=== PATIENT | female | born 1955 | race Caucasian/White ===

== ENCOUNTER 2018-11-12 12:11 | Emergency (ER) | payer BC ==
[2018-11-12] MEDS ORDERED: Ondansetron 4 MG/2 ML SDV ONE ×2 (12:14→12:15)
[2018-11-12] MEDS ORDERED: Nitroglycerin 0.4 MG Tab.SL ONE ×2 (12:15→12:21)
[2018-11-12] MEDS ORDERED: Aspirin 81 MG Tab.Chew ONE (12:16)
[2018-11-12 12:40] LABS: CHLORIDE,CL 103 mmol/L (98-107); SODIUM,NA 139 mmol/L (136-145)
--- NOTE | 2018-11-12 12:40 | EDM.PDOC ---
ED HPI GENERAL MEDICAL PROBLEM - General Chief Complaint: General Stated Complaint: chest pain Time Seen by Provider: 11/12/18 12:15 Source of Information: Reports: Patient, Family - History of Present Illness Onset: Sudden Duration: Minutes:, Improving Location: Reports: Chest Quality: Reports: Pressure (Like a ton of bricks on her chest) Severity: Severe (About 8 out of 10 initially) Improves with: Reports: Cold Therapy Worsens with: Reports: Movement Associated Symptoms: Reports: Chest Pain, Diaphoresis, Nausea/Vomiting - Related Data Allergies Allergy/AdvReac Type Severity Reaction Status Date / Time Penicillins Allergy Rash Verified 10/29/13 11:06 Home Meds: Home Meds Albuterol [Ventolin HFA] 1 puff INH ASDIRECTED 10/29/13 [History] Albuterol/Ipratropium [DuoNeb 3.0-0.5 MG/3 ML] 3 ml INH QID 10/29/13 [History] Ascorbate Calcium/Bioflavonoid [Nguyen-C 500 MG] 1 tab PO BID 10/29/13 [History] Calcium Carbonate/Vitamin D3 [Calcium 600 + Vit D Tablet] 1 tab PO BID 10/29/13 [History] Fluticasone Furoate [Veramyst] 1 spray DIANELYS BID 10/29/13 [History] Levothyroxine Sodium 100 mcg PO DAILY@12 10/29/13 [History] Codeine/Promethazine HCl [Promethazine-Codeine Syrup] 1 - 2 tsp PO Q6HR PRN #1 syrup 11/01/13 [Rx] predniSONE [Prednisone] 10 mg PO QAM #32 tablet 11/01/13 [Rx] HYDROcodone/Ibuprofen [Vicoprofen 200-7.5 MG] 1 each PO ASDIRECTED PRN #10 tablet 03/06/14 [Rx] ED ROS GENERAL - Review of Systems Review Of Systems: See Below Constitutional: Reports: No Symptoms HEENT: Reports: No Symptoms (Symptoms), Sinus Problem Respiratory: Reports: Shortness of Breath Cardiovascular: Reports: Chest Pain, Dyspnea on Exertion Endocrine: Reports: No Symptoms, Other (History of hypothyroidism) GI/Abdominal: Reports: Abdominal Pain, Nausea : Reports: No Symptoms Musculoskeletal: Reports: No Symptoms, Other (History of scoliosis and arthritis ) Skin: Reports: No Symptoms Neurological: Reports: No Symptoms Psychiatric: Reports: No Symptoms Hematologic/Lymphatic: Reports: No Symptoms Immunologic: Reports: No Symptoms ED EXAM, GENERAL - Physical Exam Exam: See Below Exam Limited By: No Limitations General Appearance: Alert, WD/WN, Severe Distress Ears: Normal External Exam, Normal Canal, Hearing Grossly Normal, Normal TMs Nose: Clear Rhinorrhea Throat/Mouth: Normal Inspection, Normal Lips, Normal Teeth, Normal Gums, Normal Oropharynx, Normal Voice, No Airway Compromise Head: Atraumatic, Normocephalic Neck: Normal Inspection, Supple, Non-Tender, Full Range of Motion Respiratory/Chest: No Respiratory Distress, Lungs Clear, Normal Breath Sounds, No Accessory Muscle Use, Chest Non-Tender Cardiovascular: Normal Peripheral Pulses (Week), Regular Rate, Rhythm, No Edema GI/Abdominal: Normal Bowel Sounds, Soft, Non-Tender, No Organomegaly, No Distention, No Abnormal Bruit, No Mass (Female) Exam: Deferred Rectal (Female) Exam: Deferred Extremities: Limited Range of Motion, Other (Scoliosis. Sacral pain) Neurological: Alert, Oriented, CN II-XII Intact, Normal Cognition, Normal Gait, Normal Reflexes, No Motor/Sensory Deficits Psychiatric: Normal Affect, Normal Mood Skin Exam: Warm, Dry, Intact, Normal Color, No Rash Lymphatic: No Adenopathy Course - Orders/Labs/Meds Orders: Active Orders 24 hr Category Date Time Status EKG Documentation Completion [RC] ASDIRECTED Care 11/12/18 12:30 Active Chest 1V Frontal [CR] Stat Exams 11/12/18 12:30 Ordered CK W CKMB [CHEM] Stat Lab 11/12/18 12:05 Received COMPREHENSIVE METABOLIC PN,CMP [CHEM] Stat Lab 11/12/18 12:05 Received D-DIMER QUANTITATIVE [COAG] Stat Lab 11/12/18 12:05 Received MAGNESIUM [CHEM] Stat Lab 11/12/18 12:05 Received PRO B-TYPE NATRIUR PEPT,BNPPRO [CHEM] Stat Lab 11/12/18 12:05 Received TROPONIN I [CHEM] Stat Lab 11/12/18 12:05 Received Labs: Laboratory Tests 11/12/18 11/12/18 11/12/18 Range/Units 12:05 12:05 12:05 WBC 10.5 H (4.0-10.2) K/uL RBC 5.06 (3.77-5.09) M/uL Hgb 14.9 (11.7-15.5) g/dL Hct 43.0 (34.0-46.0) % MCV 85.0 (84.0-98.0) fL MCH 29.4 (28.2-33.3) pg MCHC 34.7 (31.7-36.0) g/dL RDW 13.8 (11.2-14.1) % Plt Count 296 (150-350) K/uL Neut % (Auto) 50.1 (45.0-80.0) % Lymph % (Auto) 39.6 (10.0-50.0) % [place] % (Auto) 8.4 (2.0-14.0) % Eos % (Auto) 1.5 (0.0-5.0) % Baso % (Auto) 0.4 (0.0-2.0) % Neut # (Auto) 5.28 (1.40-7.00) K/uL Lymph # (Auto) 4.17 H (0.50-3.50) K/uL [place] # (Auto) 0.89 (0.00-1.00) K/uL Eos # (Auto) 0.16 (0.00-0.50) K/uL Baso # (Auto) 0.04 (0.00-0.20) K/uL PT 10.0 (9.5-12.0) SEC INR 0.9 APTT 22.4 (21.0-31.3) SEC Lactic Acid 1.8 (0.4-2.0) mmol/L Meds: Medications Discontinued Medications Generic Name Dose Route Start Last Admin Trade Name Mingq PRN Reason Stop Dose Admin Aspirin Confirm 11/12/18 12:16 Aspirin Administered 11/12/18 12:17 Dose 324 mg .ROUTE .STK-MED ONE Nitroglycerin Confirm 11/12/18 12:21 Nitrostat Administered 11/12/18 12:22 Dose 0.4 mg .ROUTE .STK-MED ONE Ondansetron HCl Confirm 11/12/18 12:14 Zofran Administered 11/12/18 12:15 Dose 4 mg .ROUTE .STK-MED ONE Departure - Departure Time of Disposition: 20:00 Disposition: Home, Self-Care 01 Clinical Impression: Gastritis Chest pain Qualifiers: Chest pain type: unspecified Qualified Code(s): R07.9 - Chest pain, unspecified - Discharge Information *PRESCRIPTION DRUG MONITORING PROGRAM REVIEWED*: No *COPY OF PRESCRIPTION DRUG MONITORING REPORT IN PATIENT BRANDY: No Care Plan Goals: Chest pain noncardiac repeat troponin in 8 hours and discharge her home from the emergency room - My Orders Last 24 Hours: My Active Orders 11/12/18 12:05 CK W CKMB [CHEM] Stat COMPREHENSIVE METABOLIC PN,CMP [CHEM] Stat D-DIMER QUANTITATIVE [COAG] Stat MAGNESIUM [CHEM] Stat PRO B-TYPE NATRIUR PEPT,BNPPRO [CHEM] Stat TROPONIN I [CHEM] Stat 11/12/18 12:30 EKG Documentation Completion [RC] ASDIRECTED Chest 1V Frontal [CR] Stat - Assessment/Plan Last 24 Hours: My Active Orders 11/12/18 12:05 CK W CKMB [CHEM] Stat COMPREHENSIVE METABOLIC PN,CMP [CHEM] Stat D-DIMER QUANTITATIVE [COAG] Stat MAGNESIUM [CHEM] Stat PRO B-TYPE NATRIUR PEPT,BNPPRO [CHEM] Stat TROPONIN I [CHEM] Stat 11/12/18 12:30 EKG Documentation Completion [RC] ASDIRECTED Chest 1V Frontal [CR] Stat
== END 2018-11-12 20:15 | disposition home or self-care (01) ==
LOC: LL.ED 12:11
DX: K29.70 Gastritis, unspecified, without bleeding (principal); Z79.899 Other long term (current) drug therapy; Z88.0 Allergy status to penicillin
CPT/HCPCS: 36415; 71045; 80053; 82550; 82553; 83605; 83735; 83880; 84484; 85025; 85379; 85610; 85730; 93005; 96374; 99285; A9270-GY; J2405